=== PATIENT | female | born 2000 | race Caucasian/White ===

== ENCOUNTER 2023-09-25 15:36 | Emergency (ER) | payer SELFPAY ==
[2023-09-25 15:39] VITALS: BP 129/88; PULSE 99; RESP 14; TEMP 36.4; O2SAT 96; BMI 31.4
[2023-09-25 17:39] LABS: Basophils % 0.2 %; Eosinophils % 0.4 %; Hematocrit 44.4 % (36-47); Lymphocytes # 0.9 10^3/uL (0.8-4.8); Lymphocytes % 8.7 %; Mean Corpuscular HGB Conc 33.1 g/dL (30-55); Mean Corpuscular Hemoglobin 28.7 pg (27-33); Mean Corpuscular Volume 86.5 fl (85-98); Mean Platelet Volume 10.1 fL (7.4-10.4); Monocytes # 0.5 10^3/uL (0.2-0.9); Monocytes % 5.3 %; Neutrophils # 8.46 10^3/uL (1.8-7.7); Nucleated Red Blood Cells % 0 %; Platelet Count 225 10^3/cmm (157-399); Red Blood Count 5.13 10^6/uL (3.85-5.65); Red Cell Distribution Width 12.8 % (12.1-15.1); White Blood Count 9.96 10^3/uL (3.29-11.43)
[2023-09-25 17:56] LABS: HCG, Serum Qual Negative (Negative)
[2023-09-25 18:03] LABS: Alanine Aminotransferase 32 U/L (0-33); Albumin Level 4.7 g/dL (3.5-5.2); Alkaline Phosphatase 65 U/L (35-105); Anion Gap 14.7 (5-19); Aspartate Amino Transferase 25 U/L (0-32); Blood Urea Nitrogen 15 mg/dL (6-20); Carbon Dioxide 23 mmol/L (22-29); Chloride 103 mmol/L (98-107); Globulin 3.1 g/dL (1.3-4.6); Glucose 101 mg/dL (65-115); Lipase 19 U/L (13-60); Osmolality Calculated 285 mOsm/kg (285-295); Potassium 3.7 mmol/L (3.5-5.1); Sodium 137 mmol/L (136-145); Total Bilirubin 0.6 mg/dL (0.15-1.2); Total Protein 7.8 g/dL (6.6-8.7)
--- NOTE | 2023-09-25 18:27 | ED_ITS ---
HPI - Nausea/Vomiting/Diarrhea 2 General: Chief complaint: Nausea/Vomiting/Diarrhea Stated complaint: n/v/d, fever Time Seen by Provider: 09/25/23 18:22 Source: patient Mode of arrival: ambulatory Limitations: no limitations History of Present Illness: 23-year-old female states that she has h ad nausea vomiting along with diarrhea since early this morning. States she had multiple episodes of vomiting and been having some slight abdominal cramping. States she is actually improved this evening last vomit was a couple hours ago. States her pain is resolved she denies any fevers denies any dysuria. Associated nausea: Yes Associated symtoms: Reports nausea; Denies chest pain, dysuria or headache(s) Review of Systems 2 Const: Denies: fever(s), chills, body aches or change in appetite ENMT: Denies: throat pain or dental pain Card: Denies: chest pain Resp: Denies: dyspnea GI: Reports: abdominal pain, nausea, vomiting and diarrhea : Denies: dysuria Musc: Denies: neck pain or back pain Skin/Breast: Denies: rash Neuro: Denies: headache(s) Physical Exam 2 Const: COMMON NORMALS: no acute distress, patient oriented x3 and healthy appearing HENMT: COMMON NORMALS: normocephalic and atraumatic HEAD & SCALP: n ormocephalic and atraumatic Neck/C-Spine: COMMON NORMALS: full ROM and supple Chest: COMMONS NORMALS: normal inspection of the chest Resp: COMMON NORMALS: normal respiratory effort, No retractions, No use of accessory muscles and clear to auscultation bilaterally AUSCULTATION: clear to auscultation bilaterally Cardio: COMMON NORMALS: regular rate, regular rhythm and No murmurs present (Cardio) RATE: regular rate RHYTHM: regular rhythm GI: COMMON NORMALS: Normal to inspection, nondistended, normoactive bowel sounds present, Soft to palpation, non-tender and no masses PALPATION: Yes Soft to palpation Extremity: COMMON NORMALS: normal to inspection and full ROM Neuro: COMMON NORMALS: patient oriented x3, moves all extremities and no focal motor deficits Psych: COMMON NORMALS: mental status grossly normal, Normal thought process present and cooperative THOUGHT PROCESS: Normal thought process present Skin: COMMON NORMALS: no rashes or lesions noted and no wounds GENERAL SKIN EXAM: no rashes or lesions noted Course 2 Vital Signs: Vital signs: Vital Signs Temperature 97.6 F 09/25/23 15:39 Pulse Rate 76 09/25/23 18:38 Respiratory Rate 14 09/25/23 15:39 Blood Pressure 124/85 09/25/23 18:38 Pulse Oximetry 98 09/25/23 18:38 Oxygen Delivery Me thod Room Air 09/25/23 18:38 MDM - Nausea/Vomiting/Diarrhea Medical Decision Making Patient presents here with vomiting diarrhea is likely a viral GI bug she feels improved here abdominal exam is benign blood works normal we will prescribe her Zofran she is to follow-up with PCP return if worsening she understands agrees to plan Medical Records I reviewed the patient's medical records. Lab Data I reviewed the patient's lab results. 09/25/23 17:31 09/25/23 17:31 Laboratory Results WBC 9.96 10^3/uL (3.29-11.43) 09/25/23 17:31 RBC 5.13 10^6/uL (3.85-5.65) 09/25/23 17:31 Hgb 14.70 g/dL (11.27-16.99) 09/25/23 17:31 Hct 44.4 % (36-47) 09/25/23 17:31 MCV 86.5 fl (85-98) 09/25/23 17:31 MCH 28.7 pg (27-33) 09/25/23 17:31 MCHC 33.1 g/dL (30-55) 09/25/23 17:31 RDW 12.8 % (12.1-15.1) 09/25/23 17:31 Plt Count 225 10^3/cmm (157-399) 09/25/23 17:31 MPV 10.1 fL (7.4-10.4) 09/25/23 17:31 Neut % (Auto) 85.0 % 09/25/23 17:31 Lymph % (Auto) 8.7 % 09/25/23 17:31 Woodson % (Auto) 5.3 % 09/25/23 17:31 Eos % (Auto) 0.4 % 09/25/23 17:31 Baso % (Auto) 0.2 % 09/25/23 17:31 Neut # (Auto) 8.46 10^3/uL (1.8-7.7) H 09/25/23 17:31 Lymph # (Auto) 0.9 10^3/uL (0.8-4.8) 09/25/23 17:31 Woodson # (Auto) 0.5 10^3/uL (0.2-0.9) 09/25/23 17:31 Eos # (Auto) 0.0 10^3/uL (0.0-0.8) 09/25/23 17:31 Baso # (Auto) 0.0 10^3/uL (0.0-0.1) 09/25/23 17:31 Nucleated RBC % (auto) 0 % 09/25/23 17:31 Nucleated RBCs # 0.0 /100WBC 09/25/23 17:31 Sodium 137 mmol/L (136-145) 09/25/23 17:31 Potassium 3.7 mmol/L (3.5-5.1) 09/25/23 17:31 Chloride 103 mmol/L (98-107) 09/25/23 17:31 Carbon Dioxide 23 mmol/L (22-29) 09/25/23 17:31 Anion Gap 14.7 (5-19) 09/25/23 17:31 BUN 15 mg/dL (6-20) 09/25/23 17:31 Creatinine 0.6 mg/dL (0.5-0.9) 09/25/23 17:31 GFR Calculation 125.0 mL/min (90-130) 09/25/23 17:31 Glucose 101 mg/dL (65-115) 09/25/23 17:31 Calculated Osmolality 285 mOsm/kg (285-295) 09/25/23 17:31 Calcium 9.0 mg/dL (8.5-10.5) 09/25/23 17:31 Total Bilirubin 0.6 mg/dL (0.15-1.2) 09/25/23 17:31 AST 25 U/L (0-32) 09/25/23 17:31 ALT 32 U/L (0-33) 09/25/23 17:31 Alkaline Phosphatase 65 U/L (35-105) 09/25/23 17:31 Total Protein 7.8 g/dL (6.6-8.7) 09/25/23 17:31 Albumin 4.7 g/dL (3.5-5.2) 09/25/23 17:31 Globulin 3.1 g/dL (1.3-4.6) 09/25/23 17:31 Lipase 19 U/L (13-60) 09/25/23 17:31 HCG, Qual Negative (Negative) 09/25/23 17:31 No radiology studies performed this visit Discharge Plan Discharge Patient Disposition: Home Clinical Impression: Vomiting Qualifiers: Vomiting type: unspecified Nausea presence: with nausea Qualified Code(s): R 11.2 - Nausea with vomiting, unspecified Condition: Stable Prescriptions: New ondansetron 4 mg tablet,disintegrating 4 mg PO Q6H PRN (Reason: nausea and vomiting) Qty: 14 0RF Discharge Orders: Discharge ED (Routine); Ordered 09/25/23 Ordered By: Gisel Hawkins Discharge Diet: Advance as tolerated Discharge Activity: Resume usual activity Patient Instructions: Acute Nausea and Vomiting (ED) Coding Level of Care Code ED Field Support Technician for Anival Gupta
[2023-09-25] MEDS: ondansetron 2 mg/ML SDV 2 mL 4 MG IVP (18:36)
[2023-09-25] MEDS: sodium chloride 0.9% 1,000 ML 999 ML IV (18:36)
[2023-09-25 18:38] VITALS: BP 124/85; PULSE 76; O2SAT 98
[2023-09-25 20:16] LABS: Bilirubin Urine Neg (Negative); Blood Urine Neg (Negative); Glucose Urine UA Norm (Normal); Ketones Urine 1+ (Negative); Leukocyte Esterase Urine Negative (Negative); Nitrate Urine Negative (Negative); Protein Urine Neg (Negative); Urine Appearance Slightly Cloudy (CLEAR); Urine Color Yellow (Yellow); Urobilinogen Urine Norm (Negative); pH Urine 7 (5-7)
[2023-09-25 20:17] LABS: Add Urine Culture? No; Add Urine Microscopic? YES; Bacteria Urine 1+ /hpf; Mucus Urine 2+ /hpf; RBC Urine 0-4 /hpf (0-2); WBC Urine 0-4 /hpf (0-5)
[2023-09-25 20:23] VITALS: BP 120/71; PULSE 78; RESP 16; O2SAT 98
== END 2023-09-25 20:26 | disposition home or self-care (01) ==
PROVIDERS: Physician Assistant; Emergency Provider Emergency Medicine
DX: R11.2 Nausea with vomiting, unspecified (principal)
CPT/HCPCS: 36415; 80053; 81001; 83690; 84703; 85025; 96361; 96374; 99284; J2405; J7030